=== PATIENT | female | born 1965 | race Caucasian/White ===

== ENCOUNTER 2016-06-18 21:55 | Emergency (ER) | payer BC ==
[~2016-06-18] VITALS: Ht 162.6 cm; Wt 65.0 kg
[~2016-06-18 21:55] MED LIST: CYCL-319 PO
[2016-06-18 22:00] VITALS: Ht 162.6 cm; Wt 65.0 kg
--- NOTE | 2016-06-19 00:05 | ERA ---
ER Documentation Chief Complaint Date/Time DATE: 06/19/16 TIME: 00:04 Chief Complaint swelling both feet and both legs since yeterday HPI The patient is a 51-year-old female, presenting to the ER because of bilateral feet swollen for 1 day. She denies recent traveling, similar symptoms previously. She has been on her feet a lot lately. She denies fever, chills, neck pain, chest pain, dyspnea, abdominal pain, vomiting Past medical history: Diabetes mellitus Past surgical history: None ROS All systems reviewed and are negative except as per history of present illness. Medications Home Meds Reported Medications Ibuprofen* (Advil*) 200 Mg Capsule, 400 MG PO Q6H Y for PAIN, CAP 06/19/16 Discontinued Scripts Cyclobenzaprine Hcl* (Cyclobenzaprine Hcl*) 10 Mg Tablet, 10 MG PO TID, #15 TAB Prov:AMI FERRARI Laurie RUANO 11/20/14 Allergies Allergies: Coded Allergies: No Known Allergy (Unverified , 06/18/16) PMhx/Soc Hx Alcohol Use: No Hx Substance Use: No Hx Tobacco Use: No Physical Exam Vitals Vital Signs Date Time Temp Pulse Resp B/P Pulse Ox O2 Delivery O2 Flow Rate FiO2 06/19/16 00:51 98.5 62 20 146/66 99 06/18/16 22:00 98.5 82 20 184/84 99 Physical Exam Const: No acute distress. Head: Atraumatic. Eyes: Normal Conjunctiva. ENT: Normal External Ears, Nose and Mouth. Neck: Full range of motion. No meningismus. Resp: Clear to auscultation bilaterally. Cardio: Regular rate and rhythm, no murmurs. Abd: Soft, non distended, normal bowel sounds, non tender. Skin: No petechiae or rashes. Back: No midline or flank tenderness. Ext: Bilateral feet edema, minimal bilateral calf discomfort, no petechia, no vesicle Neur: Awake and alert. No focal deficit Psych: Normal Mood and Affect. Result Diagram: 06/19/16 0035 06/19/16 0035 Results 24 hrs Laboratory Tests Test 06/19/16 00:24 06/19/16 00:35 06/19/16 02:00 Bedside Urine pH (LAB) 6.5 Bedside Urine Protein (LAB) Negative Bedside Urine Glucose (UA) 0.50% Bedside Urine Ketones (LAB) Negative Bedside Urine Blood Negative Bedside Urine Nitrite (LAB) Negative Bedside Urine Leukocyte Esterase (L Negative White Blood Count 6.310^3/ul Red Blood Count 4.4110^6/ul Hemoglobin 13.1g/dl Hematocrit 39.6% Mean Corpuscular Volume 89.8fl Mean Corpuscular Hemoglobin 29.7pg Mean Corpuscular Hemoglobin Concent 33.1g/dl Red Cell Distribution Width 12.8% Platelet Count 12349^3/UL Mean Platelet Volume 10.5fl Neutrophils % 53.7% Lymphocytes % 39.6% Monocytes % 5.5% Eosinophils % 0.8% Basophils % 0.2% Nucleated Red Blood Cells % 0.0/100WBC Neutrophils # 3.410^3/ul Lymphocytes # 2.510^3/ul Monocytes # 0.410^3/ul Eosinophils # 0.110^3/ul Basophils # 0.010^3/ul Nucleated Red Blood Cells # 0.010^3/ul Prothrombin Time 13.2Sec Prothrombin Time Ratio 1.0 INR International Normalized Ratio 1.00 Activated Partial Thromboplast Time 25.3Sec Sodium Level 135mmol/L Potassium Level 4.2mmol/L Chloride Level 102mmol/L Carbon Dioxide Level 28mmol/L Anion Gap 9 Blood Urea Nitrogen 12mg/dl Creatinine 0.58mg/dl Glucose Level 495mg/dl Calcium Level 10.0mg/dl Total Bilirubin 0.3mg/dl Direct Bilirubin 0.00mg/dl Indirect Bilirubin 0.3mg/dl Aspartate Amino Transf (AST/SGOT) 13IU/L Alanine Aminotransferase (ALT/SGPT) 26IU/L Alkaline Phosphatase 85IU/L B-Type Natriuretic Peptide 96PG/ML Total Protein 7.4g/dl Albumin 4.2g/dl Globulin 3.20g/dl Albumin/Globulin Ratio 1.31 Bedside Glucose 382mg/dL Current Medications Medications (Trade) Dose Ordered Sig/Pierce Route PRN Reason Start Time Stop Time Status Last Admin Dose Admin Sodium Chloride (NS) 1,000 ml @ 1,000 mls/hr Q1H ONCE IV 06/19/16 02:00 06/19/16 02:59 DC 06/19/16 01:57 Insulin Human Lispro (Humalog) 14 unit ONCE ONCE SC 06/19/16 01:49 06/19/16 01:50 DC 06/19/16 01:57 Procedures/MDM [place] [address] Radiology Main Line: [phone] DIAGNOSTIC IMAGING REPORT Patient: LILI KOLB : 1965 Age: 51 Sex: F MR #: [id number] DOS: 06/19/16 0009 Ordering MD: YESSENIA TAPIA MD Location: E/R Room/Bed: PROCEDURE: ULTRASOUND BILATERAL LOWER EXTREMITY VENOUS CLINICAL INDICATION: 51-year-old female with shortness of breath and lower extremity pain. TECHNIQUE: Multiple sonographic images of the bilateral lower extremity deep venous system was obtained utilizing grayscale, color-flow, compressive sonography and doppler imaging with augmentation. The images were reviewed on a PACS workstation. COMPARISON: None. FINDINGS: There is normal compressibility and flow within the common femoral, deep femoral , superficial femoral, popliteal, posterior tibial and peroneal veins. IMPRESSION: No sonographic evidence for deep venous thrombosis. .Jefferson Higgins MD, MD Date Time Electronically viewed and signed by .Jefferson Higgins MD, MD on 06/19/2016 02:22 .M/ CC: YESSENIA TAPIA MD [place] [address] Radiology Main Line: [phone] DIAGNOSTIC IMAGING REPORT Patient: LILI KOLB : 1965 Age: 51 Sex: F MR #: [id number] DOS: 06/19/16 0009 Ordering MD: YESSENIA TAPIA MD Location: E/R Room/Bed: PROCEDURE: XR Chest. CLINICAL INDICATION: Dyspnea. TECHNIQUE: Single frontal view of the chest. COMPARISON: None. FINDINGS: The cardiomediastinal silhouette is within normal limits. The lungs are clear. No signs of pleural fluid or pneumothorax are seen. The osseous structures and soft tissues are unremarkable. IMPRESSION: No evidence for active cardiopulmonary disease. RPTAT: [facility] Physician Janine Date Time Electronically viewed and signed by Velma Romero Physician on 06/19/2016 02:17 RS/ CC: YESSENIA TAPIA MD MEDICAL MAKING DECISION: The patient is a 51-year-old female, presenting with acute bilateral leg edema of unclear etiology, acute diabetic hyperglycemia. She was treated with 1 L normal saline and Humalog 14 units subcutaneously for acute diabetic hyperglycemia with good response. The differential diagnoses considered include but are not limited to DVT, cellulitis, hepatic insufficiency, renal insufficiency, HHS, DKA Departure Diagnosis: Primary Impression: Peripheral edema Additional Impression: Diabetes mellitus with hyperglycemia Condition: Good Comments I discussed the findings with the patient. I advised the patient to follow-up with the primary physician in about 1-2 days, sooner if needed and return if any concern. The patient's blood pressure was elevated (>120/80) but appears stable without evidence of hypertension emergency or urgency. The patient was counseled about the risks of hypertension and urged to pursue outpatient monitoring and therapy within a week with their primary care physician. YESSENIA TAPIA MD June 19, 2016 00:04
[2016-06-19 00:23] LABS: URINE BLOOD (Dip) POC Negative (NEGATIVE)
[2016-06-19 00:51] VITALS: TEMP 98.5
[2016-06-19 00:56] LABS: ADD SCAN DIFF NO
[2016-06-19 00:58] LABS: BASOPHILS % 0.2 % (0.0-2.0); EOSINOPHILS # 0.1 10^3/ul (0.0-0.5); EOSINOPHILS % 0.8 % (0.0-7.0); HEMATOCRIT 39.6 % (37.0-47.0); HEMOGLOBIN 13.1 g/dl (12.0-16.0); LYMPHOCYTES # 2.5 10^3/ul (0.8-2.9); LYMPHOCYTES % 39.6 % (15.0-51.0); MEAN CORPUSCULAR HEMOGLOBIN 29.7 pg (29.0-33.0); MEAN CORPUSCULAR HGB CONC 33.1 g/dl (32.0-37.0); MEAN CORPUSCULAR VOLUME 89.8 fl (82.0-101.0); MEAN PLATELET VOLUME 10.5 fl (7.4-10.4); MONOCYTE # 0.4 10^3/ul (0.3-0.9); MONOCYTES % 5.5 % (0.0-11.0); NEUTROPHIL # 3.4 10^3/ul (1.6-7.5); NEUTROPHILS % 53.7 % (39.0-77.0); PLATELET COUNT 225 10^3/UL (140-415); RED BLOOD COUNT 4.41 10^6/ul (4.20-5.40); RED CELL DISTRIBUTION WIDTH 12.8 % (11.5-14.5); WHITE BLOOD COUNT 6.3 10^3/ul (4.8-10.8)
[2016-06-19 01:16] LABS: ALBUMIN 4.2 g/dl (3.3-4.9); ALBUMIN/GLOBULIN RATIO 1.31; BILIRUBIN,INDIRECT 0.3 mg/dl (0-1.1); BILIRUBIN,TOTAL 0.3 mg/dl (0.2-1.3); CREATININE 0.58 mg/dl (0.44-1.00); POTASSIUM 4.2 mmol/L (3.5-5.1); TOTAL PROTEIN 7.4 g/dl (6.1-8.1)
[2016-06-19 01:19] LABS: PARTIAL THROMBOPLASTIN TIME 25.3 Sec (25.0-35.0); PROTIME 13.2 Sec (12.2-14.2)
[2016-06-19] MEDS ORDERED: IBUP200C11 PO (01:29)
[2016-06-19] MEDS ORDERED: INSULIN LISPRO 100 UNIT/ML VIAL SC ONE (01:49)
[2016-06-19] MEDS ORDERED: SOD CHLORIDE 0.9% 1,000 ML IV ONE (02:00)
--- NOTE | 2016-06-19 02:17 | RADRPT ---
PROCEDURE: XR Chest. CLINICAL INDICATION: Dyspnea. TECHNIQUE: Single frontal view of the chest. COMPARISON: None. FINDINGS: The cardiomediastinal silhouette is within normal limits. The lungs are clear. No signs of pleural f luid or pneumothorax are seen. The osseous structures and soft tissues are unremarkable. IMPRESSION: No evidence for active cardiopulmonary disease. RPTAT: [facility] Physician Janine Date Time Electronically viewed and signed by Physician Janine on 06/19/2016 02:17 RS/
--- NOTE | 2016-06-19 02:22 | RADRPT ---
PROCEDURE: ULTRASOUND BILATERAL LOWER EXTREMITY VENOUS CLINICAL INDICATION: 51-year-old female with shortness of breath and lower extremity pain. TECHNIQUE: Multiple sonographic images of the bilateral lower extremity deep venous system was obt ained utilizing grayscale, color-flow, compressive sonography and doppler imaging with augmentation. The images were reviewed on a PACS workstation. COMPARISON: None. FINDINGS: There is normal compressibility and flow within the common femoral, deep femoral, superficial femora l, popliteal, posterior tibial and peroneal veins. IMPRESSION: No sonographic evidence for deep venous thrombosis. .Jefferson Higgins MD, MD Date Time Electronically viewed and signed by .Jefferson Higgins MD, on 06/19/2016 02:22 .[place]
[2016-06-19 04:17] VITALS: BP 137/70; PULSE 81; RESP 18
== END 2016-06-19 04:19 | disposition home or self-care (01) ==
LOC: E/R 21:55
DX: R60.0 Localized edema (principal); E11.65 Type 2 diabetes mellitus with hyperglycemia
CPT/HCPCS: 36415; 71010; 80053; 81003; 82962; 83880; 85025; 85610; 85730; 93970; 96372; 99285; J1815; J7030